=== PATIENT | female | born 1990 | race Caucasian/White ===

== ENCOUNTER 2018-05-27 15:50 | Inpatient (IN) | payer OTHER ==
[~2018-05-27] VITALS: Ht 160 cm; Wt 96.6 kg
[2018-05-27] MEDS ORDERED: PROMETHAZINE 25 MG/ML VIAL IVP PRN (16:35)
[2018-05-27] MEDS ORDERED: METHYLERGONOVINE 0.2 MG/ML AMP IM PRN (16:35)
[2018-05-27] MEDS ORDERED: OXYTOCIN 10 UNITS/ML VIAL IM SCH (16:35)
[2018-05-27] MEDS ORDERED: NALBUPHINE 10 MG/ML AMP IVP PRN (16:35)
[2018-05-27] MEDS ORDERED: CARBOPROST 250 MCG/ML AMP IM PRN (16:35)
[2018-05-27] MEDS ORDERED: PREN-546 PO (16:43)
[2018-05-27 17:34] LABS: BASOPHILS % (AUTO) 0.4 % (0.0-2.0); EOSINOPHILS # (AUTO) 0.1 K/uL (0-0.4); HEMATOCRIT 36.1 % (36-48); HEMOGLOBIN 11.6 g/dL (12.0-16.0); LYMPHOCYTES % (AUTO) 20.9 % (20.5-51.1); MEAN CORPUSCULAR HEMOGLOBIN 28 pg (27-31); MEAN CORPUSCULAR HGB CONC 32 g/dL (33-37); MEAN CORPUSCULAR VOLUME 86.4 fL (80-94); MONOCYTES # (AUTO) 0.6 K/uL (0.8-1.0); MONOCYTES % (AUTO) 6.4 % (1.7-9.3); NEUTROPHILS % (AUTO) 71.3 % (42.2-75.2); PLATELET COUNT (AUTO) 231 K/uL (140-450); RED BLOOD CELL COUNT(AUTO) 4.18 MIL/uL (4.20-5.40); RED CELL DISTRIBUTION WIDTH 15.8 % (11.6-13.7); WHITE BLOOD COUNT (AUTO) 9.8 K/uL (4.8-10.8)
[2018-05-27 17:41] LABS: BILIRUBIN,URINE NEGATIVE (NEGATIVE); BLOOD, URINE TRACE-L (NEGATIVE); COLOR,URINE YELLOW (YELLOW); LEUKOCYTE ESTERASE ,URINE NEGATIVE (NEGATIVE); NITRITE, URINE POSITIVE (NEGATIVE); UGLUCOSE NEGATIVE (NEGATIVE)
[2018-05-27 17:52] LABS: APPEARANCE,URINE HAZY (CLEAR)
[2018-05-27 17:54] LABS: ALBUMIN 2.9 g/dL (3.4-5.0); ANION GAP 13.5 (8-16); CARBON DIOXIDE 22.1 mmol/L (21-32); CREATININE 0.6 mg/dL (0.6-1.3); POTASSIUM 3.6 mmol/L (3.5-5.1); TOTAL BILIRUBIN 0.2 mg/dL (0.0-1.0)
[2018-05-27] MEDS ORDERED: MISOPROSTOL 25 MCG TAB VG PRN (18:05)
[2018-05-27] MEDS ORDERED: OXYTOCIN 20 UNITS in LACTATED RINGERS 1,000 ML IV SCH (18:10)
[2018-05-27 18:13] LABS: RBC,URINE 0-5 (RARE) /HPF (0-5); WBC,URINE 0-5 (RARE) /HPF (0-5)
[2018-05-27] MEDS: LACTATED RINGERS 1,000 ML IV SCH ×2 (18:49→22:15)
[2018-05-27] MEDS ORDERED: MISOPROSTOL 25 MCG TAB ONE (20:06)
[2018-05-27] MEDS ORDERED: OXYTOCIN 20 UNITS/LR PREMIX 1,000 ML IV ONE (22:54)
[2018-05-28] MEDS ORDERED: NALBUPHINE 10 MG/ML AMP ONE (01:22)
[2018-05-28] MEDS ORDERED: PROMETHAZINE 25 MG/ML VIAL ONE (01:23)
--- NOTE | 2018-05-28 06:34 | NUR ---
PATIENT HAS BEEN SCREENED AND CATEGORIZED LOW NUTRITION RISK. PATIENT WILL BE SEEN WITHIN 7 DAYS OF ADMISSION. 06/03/18 FIDE CARSON MS, RDN
[2018-05-28] MEDS: LACTATED RINGERS 1,000 ML IV SCH ×2 (07:39→19:00)
[2018-05-28] MEDS ORDERED: BUPIVACAINE 0.125%/NS PREMIX 250 ML ONE (12:33)
[2018-05-28] MEDS ORDERED: OXYTOCIN 10 UNITS/ML VIAL ONE (19:34)
[2018-05-28] MEDS ORDERED: HYDROcodone/APAP 5/325 MG 1 TAB TAB PO PRN (20:05)
[2018-05-28] MEDS ORDERED: IBUPROFEN 800 MG TAB PO PRN (20:05)
[2018-05-28] MEDS ORDERED: OXYTOCIN 10 UNITS/ML VIAL IM PRN (20:05)
[2018-05-28] MEDS ORDERED: TEMAZEPAM 15 MG CAP PO PRN (20:05)
[2018-05-28] MEDS ORDERED: oxyCODONE/APAP 5/325 MG 1 TAB TAB PO PRN (20:05)
[2018-05-28] MEDS ORDERED: MEASLES, MUMPS, AND RUBELLA 1 VIAL SQVAC PRN (20:05)
[2018-05-28] MEDS ORDERED: METHYLERGONOVINE 0.2 MG/ML AMP IM PRN (20:05)
[2018-05-28] MEDS ORDERED: DOCUSATE SOD/SENNA 50/8.6 MG 1 TAB PO SCH (21:00)
[2018-05-29 06:36] LABS: HEMATOCRIT 31.5 % (36-48); HEMOGLOBIN 10.6 g/dL (12.0-16.0)
[2018-05-29] MEDS ORDERED: DOCUSATE SOD/SENNA 50/8.6 MG 1 TAB PO SCH (21:00)
== END 2018-05-30 15:00 | disposition home or self-care (01) | DRG 560 ==
LOC: OBSVTOIN 15:50 → MLD 15:50 → MFCC 05-28 23:40
PROVIDERS: ADMIT Obstetrics & Gynecology; ATTEND Obstetrics & Gynecology
PROC: 10E0XZZ Delivery of Products of Conception, External Approach (ICD-10-PCS; principal; 2018-05-28)
PROC: 10907ZC Drainage of Amniotic Fluid, Therapeutic from Products of Conception, Via Natural or Artificial Opening (ICD-10-PCS; 2018-05-28)
PROC: 0HQ9XZZ Repair Perineum Skin, External Approach (ICD-10-PCS; 2018-05-28)
PROC: 00HU33Z Insertion of Infusion Device into Spinal Canal, Percutaneous Approach (ICD-10-PCS; 2018-05-28)
PROC: 3E0R3BZ Introduction of Anesthetic Agent into Spinal Canal, Percutaneous Approach (ICD-10-PCS; 2018-05-28)
DX: O70.0 First degree perineal laceration during delivery (principal); Z37.0 Single live birth; Z3A.39 39 weeks gestation of pregnancy
CPT/HCPCS: 36415; 51702; 59200; 59409; 76805; 80053; 81001; 82948; 85018; 85025; 86592; 86762; 86886; 86900; 86901; 87340; J2300; J2550; J2590; J3490; J7120; Q0092

== ENCOUNTER 2022-04-05 16:41 | Emergency (ER) | payer OTHER ==
[~2022-04-05] VITALS: Ht 162.6 cm; Wt 93.0 kg
[~2022-04-05 16:41] MED LIST: PREN-546 PO
[2022-04-05 16:44] VITALS: BP 152/102
--- NOTE | 2022-04-05 16:51 | NUR ---
31 Y/O FEMALE BIB BOYFRIEND C/O INTERMITTENT BACK PAIN FROM THE [place] TO THE BACK OF THE NECK AND PRESSURE ON THE MIDDLE OF THE CHEST GOING TO THE LEFT ARM X3 DAYS, DENIES RECENT INJURY OR TRAUMA. NAUSEA NOTED DENIES ANY VOMITING/DIARRHEA OR SOB. DENIES ANY BAILON. REPORTS TAKING TYLENOL WITH MILD RELIEF. PMH: DENIES NKA
--- NOTE | 2022-04-05 16:51 | NUR ---
PT AMBULATED TO BED 8 WITH STEADY GAIT
--- NOTE | 2022-04-05 17:11 | NUR ---
PT AMBULATED TO BATHROOM WITH STEADY GAIT
[2022-04-05] MEDS ORDERED: KETOROLAC 60 MG/2 ML VIAL IM ONE (17:25)
--- NOTE | 2022-04-05 17:36 | NUR ---
DR ALARCON AT BEDSIDE
[2022-04-05] MEDS ORDERED: ACET-8386 PO (17:49)
[2022-04-05] MEDS ORDERED: IBUP-2213 PO (17:49)
--- NOTE | 2022-04-05 17:55 | NUR ---
Patient discharged with v/s stable. Written and verbal after care instructions given and explained. Patient alert, oriented and verbalized understanding of instructions. Ambulatory with steady gait. All questions addressed prior to discharge. ID band removed. Patient advised to follow up with PMD. Rx of NORCO 5-325 AND MOTRIN given. Patient educated on indication of medication including possible reaction and side effects. Opportunity to ask questions provided and answered.
== END 2022-04-05 17:55 | disposition home or self-care (01) ==
LOC: MED 16:41
DX: M54.6 Pain in thoracic spine (principal); R07.89 Other chest pain; Z79.899 Other long term (current) drug therapy
CPT/HCPCS: 81002; 81025; 96372; 99283; J1885

== ENCOUNTER 2022-11-14 22:48 | Emergency (ER) | payer OTHER ==
[~2022-11-14] VITALS: Ht 162.6 cm; Wt 93.0 kg
[~2022-11-14 22:48] MED LIST changes: +ACET-8905 PO; +IBUP-2213 PO
[2022-11-14 23:25] VITALS: BP 153/98
--- NOTE | 2022-11-14 23:28 | NUR ---
TO LOBBY A/W BED AMBULATORY
--- NOTE | 2022-11-15 00:12 | NUR ---
BLOOD DRAWN AND SENT TO LAB
--- NOTE | 2022-11-15 00:12 | NUR ---
Iker foley in BOO - 11/15/22 at 0021 by [id number] BLOOD DRAWN AND SENT TO LAB
[2022-11-15 00:37] LABS: BASOPHILS % (AUTO) 0.4 % (0.0-2.0); EOSINOPHILS # (AUTO) 0.1 K/uL (0-0.4); EOSINOPHILS % (AUTO) 1.3 % (0.0-4.0); HEMATOCRIT 35.3 % (36-48); HEMOGLOBIN 11.7 g/dL (12.0-16.0); LYMPHOCYTES # (AUTO) 1.6 K/uL (2.5-16.5); LYMPHOCYTES % (AUTO) 14.9 % (20.5-51.1); MEAN CORPUSCULAR HEMOGLOBIN 26 pg (27-31); MEAN CORPUSCULAR HGB CONC 33 g/dL (33-37); MEAN CORPUSCULAR VOLUME 78.2 fL (80-94); MONOCYTES # (AUTO) 0.8 K/uL (0.8-1.0); MONOCYTES % (AUTO) 7.8 % (1.7-9.3); NEUTROPHILS # (AUTO) 8.2 K/uL (1.8-7.7); NEUTROPHILS % (AUTO) 75.6 % (42.2-75.2); PLATELET COUNT (AUTO) 323 K/uL (140-450); RED BLOOD CELL COUNT(AUTO) 4.51 MIL/uL (4.20-5.40); RED CELL DISTRIBUTION WIDTH 16.2 % (11.6-13.7); WHITE BLOOD COUNT (AUTO) 10.8 K/uL (4.8-10.8)
[2022-11-15 00:45] LABS: APPEARANCE,URINE HAZY (CLEAR); BILIRUBIN,URINE NEGATIVE (NEGATIVE); BLOOD, URINE TRACE-I (NEGATIVE); COLOR,URINE YELLOW (YELLOW); LEUKOCYTE ESTERASE ,URINE TRACE (NEGATIVE); NITRITE, URINE POSITIVE (NEGATIVE); UGLUCOSE NEGATIVE (NEGATIVE)
[2022-11-15 00:56] LABS: ALBUMIN 4.3 g/dL (3.4-5.0); ANION GAP 13.2 (8-16); CARBON DIOXIDE 28.7 mmol/L (21-32); CREATININE 0.8 mg/dL (0.6-1.3); POTASSIUM 3.9 mmol/L (3.5-5.1); TOTAL BILIRUBIN 0.6 mg/dL (0.0-1.0)
[2022-11-15 00:58] LABS: RBC,URINE 0-5 /HPF (0-5)
[2022-11-15] MEDS ORDERED: cefTRIAXone 1,000 MG in LIDOCAINE MPF 1% 2.1 ML IM ONE (01:10)
[2022-11-15] MEDS ORDERED: KETOROLAC 60 MG/2 ML VIAL IM ONE (01:10)
[2022-11-15] MEDS ORDERED: cefTRIAXone 1,000 MG VIAL ONE (01:11)
[2022-11-15] MEDS ORDERED: LIDOCAINE MPF 1% 5 ML ONE (01:12)
[2022-11-15] MEDS ORDERED: NAPR-54 PO (01:29)
[2022-11-15] MEDS ORDERED: NITR100C7 PO (01:29)
--- NOTE | 2022-11-15 01:30 | NUR ---
PT CLEARED FOR D/C. ALL D/C INSTRUCTIONS AND MEDICATION ADMINISTRATION PROVIDED BY DR. KENNEY. RX OF NAPROSYN AND MACROBID GIVEN
--- NOTE | 2022-11-18 16:01 | NUR ---
LATE ENTRY. RECEIVED POSITIVE URINE CULTURE RESULT. FORM GIVEN TO DR CARLIN. TREATMENT APPROPRIATE. FORM PLACED IN BINDER.
== END 2022-11-15 01:30 | disposition home or self-care (01) ==
LOC: MED 22:48
DX: N39.0 Urinary tract infection, site not specified (principal)
CPT/HCPCS: 36415; 80053; 81001; 85025; 87086; 96372; 99284; J0696; J1885; J2001

== ENCOUNTER 2023-03-05 11:02 | Emergency (ER) | payer OTHER ==
[~2023-03-05] VITALS: Ht 165.1 cm; Wt 85.7 kg
[~2023-03-05 11:02] MED LIST changes: +NAPR-54 PO; +NITR100C7 PO
[2023-03-05 11:52] VITALS: BP 168/93
[2023-03-05] MEDS ORDERED: IBUPROFEN 600 MG TAB PO ONE (11:55)
--- NOTE | 2023-03-05 12:44 | NUR ---
SWABS SENT TO LAB.
[2023-03-05] MEDS ORDERED: AMOX1TAB8 PO (12:46)
[2023-03-05] MEDS ORDERED: ALBU0.0912 IH (12:46)
[2023-03-05] MEDS ORDERED: ACET-10509 PO (12:46)
[2023-03-05] MEDS ORDERED: BENZ200C4 PO (12:46)
[2023-03-05] MEDS ORDERED: AZIT250T4 PO (12:46)
[2023-03-05 12:59] LABS: BILIRUBIN,URINE NEGATIVE (NEGATIVE); BLOOD, URINE 3+ (NEGATIVE); LEUKOCYTE ESTERASE ,URINE 2+ (NEGATIVE); NITRITE, URINE NEGATIVE (NEGATIVE); UGLUCOSE TRACE (NEGATIVE)
--- NOTE | 2023-03-05 13:05 | NUR ---
Patient discharged with v/s stable. Written and verbal after care instructions given and explained. Patient alert, oriented and verbalized understanding of instructions. Ambulatory with steady gait. All questions addressed prior to discharge. ID band removed. Patient advised to follow up with PMD. Rx of AUGMENTIN, MOTRIN, ZITHROMAX given. Patient educated on indication of medication including possible reaction and side effects. Opportunity to ask questions provided and answered.
[2023-03-05 13:08] LABS: APPEARANCE,URINE SLIGHTLY BLOODY (CLEAR); COLOR,URINE AMBER (YELLOW)
[2023-03-05 13:27] LABS: RBC,URINE >100 /HPF (0-5)
== END 2023-03-05 13:05 | disposition home or self-care (01) ==
LOC: MED 11:02
DX: N39.0 Urinary tract infection, site not specified (principal); Z20.822 Contact with and (suspected) exposure to COVID-19; J18.9 Pneumonia, unspecified organism; E11.9 Type 2 diabetes mellitus without complications; Z79.4 Long term (current) use of insulin; Z79.899 Other long term (current) drug therapy
CPT/HCPCS: 71045; 81001; 87086; 87186; 99284